=== PATIENT | female | born 1945 | race Caucasian/White ===

== ENCOUNTER → 2019-07-06 | Outpatient (CLI) | payer MEDICARE, BC ==
[~2019-07-06] MED LIST: LEXAPRO 10 MG T10 M1 PO; SYNTHROID125 MCG PO; VICODIN 5-5001 EACH PO
== END ==
LOC: M.ULTRA 13:53
DX: I82.412 Acute embolism and thrombosis of left femoral vein (principal); Z88.0 Allergy status to penicillin; Z88.8 Allergy status to other drugs, medicaments and biological substances

== ENCOUNTER 2019-11-07 01:24 | Emergency (ER) | payer MEDICARE, BC ==
[~2019-11-07] VITALS: Ht 170.2 cm; Wt 70.3 kg
[2019-11-07 01:44] LABS: URINE BILIRUBIN NEGATIVE (Negative); URINE BLOOD 1+ (Negative); URINE CLARITY CLEAR; URINE COLOR YELLOW; URINE GLUCOSE-RANDOM NEGATIVE (Negative); URINE KETONES NEGATIVE (Negative); URINE LEUKOCYTES-REFLEX 2+ (Negative); URINE NITRITE-REFLEX NEGATIVE (Negative); URINE PROTEIN NEGATIVE (Negative); URINE SPECIFIC GRAVITY <= 1.005 (1.005-1.030); URINE UROBILINOGEN 0.2 E.U./dl (0.2-1.0)
[2019-11-07 02:21] LABS: CASTS None Seen /LPF (None Seen); SQUAMOUS 0-3 Few /LPF (0-3); WBC CLUMPS Few (None Seen)
[2019-11-07 02:22] LABS: URINE RBC 3-10 Few /HPF (0-2); URINE WBC-REFLEX >25 Many /HPF (0-5)
[2019-11-07 02:23] LABS: CRYSTALS None Seen /LPF (None Seen)
[2019-11-07] MEDS ORDERED: MACROBID 100 M100 M1 PO (02:48)
[2019-11-07] MEDS ORDERED: PYRIDIUM200 MG PO (02:48)
[2019-11-07 03:05] VITALS: BP 121/69
== END 2019-11-07 03:05 | disposition home or self-care (01) ==
LOC: M.ERS 01:24
PROVIDERS: Emergency Medicine
DX: N39.0 Urinary tract infection, site not specified (principal); Z88.1 Allergy status to other antibiotic agents; Z88.8 Allergy status to other drugs, medicaments and biological substances

== ENCOUNTER 2020-04-18 01:57 | Emergency (ER) | payer MEDICARE, BC ==
[~2020-04-18] VITALS: Ht 170.2 cm; Wt 74.4 kg
[~2020-04-18 01:57] MED LIST changes: +MACROBID 100 M100 M1 PO; +PYRIDIUM200 MG PO
[2020-04-18] MEDS ORDERED: LEXAPRO 10 MG T10 M2 PO (02:31)
[2020-04-18] MEDS ORDERED: SYNTHROID88 MC1 PO (02:31)
[2020-04-18] MEDS ORDERED: BUTALB-APAP-CA1 EACH PO (02:32)
[2020-04-18 02:36] LABS: ABSOLUTE BASOPHILS 0.1 thou/uL (0.0-0.2); ABSOLUTE EOSINOPHILS 0.5 thou/uL (0.0-0.7); ABSOLUTE LYMPHOCYTES 3.1 thou/uL (0.8-5.3); ABSOLUTE MONOCYTES 0.8 thou/uL (0.0-1.2); ABSOLUTE NEUTROPHILS 2.4 thou/uL (1.6-8.1); BASOPHILS 0.9 %; EOSINOPHILS 7.5 %; HEMATOCRIT 39.5 % (37.0-47.0); HEMOGLOBIN 13.6 gm/dL (12.0-15.0); LYMPHOCYTES 45.1 %; MCH 32.3 pg (26.0-34.0); MCHC 34.4 g/dL (28.0-37.0); MCV 93.8 fL (80.0-100.0); MONOCYTES 11.2 %; NUCLEATED RBCS 0 /100WBC; PLATELET COUNT* 250 thou/uL (150-400); POLYS 35.3 %; RBC 4.21 mil/uL (4.20-5.00); RDW-CV 12.8 % (10.5-14.5); WBC 6.8 thou/uL (4.0-11.0)
[2020-04-18 02:41] LABS: CALCIUM 8.5 mg/dL (8.5-10.1); CREATININE 0.8 mg/dL (0.6-1.3); POTASSIUM 3.5 mmol/L (3.5-5.1)
[2020-04-18 02:51] LABS: URINE BILIRUBIN NEGATIVE (Negative); URINE BLOOD TRACE (Negative); URINE CLARITY CLEAR; URINE COLOR STRAW; URINE GLUCOSE-RANDOM NEGATIVE (Negative); URINE KETONES NEGATIVE (Negative); URINE LEUKOCYTES-REFLEX NEGATIVE (Negative); URINE NITRITE-REFLEX NEGATIVE (Negative); URINE PROTEIN NEGATIVE (Negative); URINE SPECIFIC GRAVITY <= 1.005 (1.005-1.030); URINE UROBILINOGEN 0.2 E.U./dl (0.2-1.0)
[2020-04-18 02:55] LABS: ALBUMIN 3.4 g/dL (3.4-5.0); MAGNESIUM 2.2 mg/dL (1.8-2.4); TOTAL BILIRUBIN 0.2 mg/dL (<0.1-1.0)
[2020-04-18 03:06] LABS: PROTIME 10.7 Seconds (9.20-11.50)
[2020-04-18] MEDS ORDERED: MACROBID 100 M100 M1 PO (04:17)
[2020-04-18 04:29] VITALS: BP 112/58
--- NOTE | 2020-04-18 13:27 | EKG ---
[place] [address] ELECTROCARDIOGRAM REPORT Name: ELVIAPAMELLA DUARTESEAN [place] Room: [facility]#: [id number] Admission: 04/18/20 Attend Phys: Discharge: 04/18/20 Date of : 45 Date of Service: 04/18/20 0207 Report #: [id number] THIS REPORT FOR: //name// [facility] ED Test Date: 2020-04-18 Test Time: 02:07:23 Pat Name: SEAN DUARTE Department: Room: Gender: F Corporate Manager: : 1945 Requested By: Jazmin Dejesus Order Number: [id number] Maria G MD: Boston Duenas Measurements Intervals [place] Rate: 116 P: FL: QRS: -4 QRSD: 86 T: 8 QT: 312 QTc: 434 Interpretive Statements Atrial fibrillation Abnormal R-wave progression, early transition Borderline repol abnormality, diffuse leads No previous ECG available for comparison Electronically Signed On 04-18-2020 13:27:07 CDT by Boston Duenas [email or web address] <ELECTRONICALLY SIGNED> By: Boston Duenas MD, [facility] 04/18/20 1327 6 Boston Duenas MD, [facility] /EPI
--- NOTE | 2020-04-18 13:28 | EKG ---
[place] [address] ELECTROCARDIOGRAM REPORT Name: ELVIA DRAKEEVESEAN Room: [facility]#: [id number] Admission: 04/18/20 Attend Phys: Discharge: 04/18/20 Date of : 45 Date of Service: 04/18/20316 Report #: [id number] THIS REPORT FOR: //name// 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
== END 2020-04-18 04:30 | disposition home or self-care (01) ==
LOC: M.ERS 01:57
PROVIDERS: Emergency Medicine
DX: I48.91 Unspecified atrial fibrillation (principal); Z88.1 Allergy status to other antibiotic agents; Z87.440 Personal history of urinary (tract) infections

== ENCOUNTER 2021-07-30 09:32 | Inpatient (IN) | payer MEDICARE, BC ==
[~2021-07-30] VITALS: Ht 170.2 cm; Wt 69.4 kg
--- NOTE | ~2021-07-30 | EKG ---
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
--- NOTE | ~2021-07-30 | EKG ---
[place] [address] ELECTROCARDIOGRAM REPORT Name: SEAN DEJESUS Room: [place] [address] ADM IN .R.#: [id number] Admission: 07/30/21 Attend Phys: Mary Desai, Discharge: Date of : 45 Date of Service: 07/30/21 1008 Report #: [id number] THIS REPORT FOR: //name// 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
[~2021-07-30 09:32] MED LIST changes: +BUTALB-APAP-CA1 EACH PO; +LEXAPRO 10 MG T10 M2 PO; +SYNTHROID88 MC1 PO
[2021-07-30 09:34] VITALS: BP 135/62
[2021-07-30] MEDS ORDERED: PRADAXA150 MG PO (09:37)
[2021-07-30] MEDS ORDERED: KAPSPARGO SPRIN25 MG (09:39)
[2021-07-30 10:06] LABS: ABSOLUTE EOSINOPHILS 0.3 thou/uL (0.0-0.7); ABSOLUTE LYMPHOCYTES 1.4 thou/uL (0.8-5.3); ABSOLUTE MONOCYTES 0.7 thou/uL (0.0-1.2); ABSOLUTE NEUTROPHILS 2.3 thou/uL (1.6-8.1); BASOPHILS 0.8 %; EOSINOPHILS 6.4 %; HEMOGLOBIN 13.6 gm/dL (12.0-15.0); LYMPHOCYTES 30.3 %; MCH 31.8 pg (26.0-34.0); MCHC 33.9 g/dL (28.0-37.0); MCV 93.6 fL (80.0-100.0); MONOCYTES 14.1 %; MPV 7.4 fl. (7.2-11.1); NUCLEATED RBCS 0 /100WBC; PLATELET COUNT* 234 thou/uL (150-400); POLYS 48.4 %; RBC 4.27 mil/uL (4.20-5.00); RDW-CV 12.8 % (10.5-14.5); WBC 4.7 thou/uL (4.0-11.0)
[2021-07-30 10:20] LABS: CALCIUM 9.2 mg/dL (8.5-10.1); CREATININE 0.8 mg/dL (0.6-1.3); POTASSIUM 3.6 mmol/L (3.5-5.1)
[2021-07-30 10:25] LABS: ALBUMIN 3.5 g/dL (3.4-5.0); MAGNESIUM 2.1 mg/dL (1.8-2.4); TOTAL BILIRUBIN 0.3 mg/dL (<0.1-1.0); TOTAL PROTEIN 7.6 g/dL (6.4-8.2)
[2021-07-30] MEDS ORDERED: MACROBID 100 M100 MG PO (13:18)
[2021-07-30] MEDS ORDERED: CLARITIN10 MG PO (14:17)
[2021-07-30] MEDS ORDERED: TOPROL XL25 MG PO (14:21)
--- NOTE | 2021-07-30 14:22 | CON ---
[address] [address] CONSULTATION Name: SEAN DEJESUS Room: [place] [address] ADM IN M.R.#: [id number] Admission: 07/30/21 Attend Phys: Mary Desai MD Discharge: Date of : 45 Report #: [id number] THIS REPORT FOR: cc: Shubham Mathews MD, Dean L. MD Blick, David R. MD FAC ~ cc: Shubham Mathews MD, SHEILA TURCIOS MD DATE OF CONSULTATION: 07/30/2021 CARDIOLOGY CONSULTATION HISTORY OF PRESENT ILLNESS: The patient is a 75-year-old white female who came to the Emergency Room complaining of palpitations. The patient notes that last year, she was having intermittent palpitations. She was evaluated by Dr. Sheila Turcios in the Cardiology Clinic at [facility]. She wore a monitor and apparently had an echocardiogram. She was told that she had intermittent atrial fibrillation. She was started on metoprolol and Pradaxa. Since that time, she has had only rare episodes where her heart skipped a few beats. She has had no prolonged palpitations or syncope. Apparently, she forgot to take her metoprolol yesterday. She awakened at 3:00 in the morning with her heart beating fast. It would occur off and on. She finally called the EMS and was brought to the Emergency Room here at [facility] this morning. On the monitor, she was in sinus rhythm. However, when the patient got up to walk to the bathroom, she went into a rapid narrow complex tachycardia at 150 beats per minute consistent with atrial flutter. This then converted when she laid down. Cardiology consultation requested. She stays very active. Denies any chest tightness, shortness of breath, recent fever or cough. She has been vaccinated twice for COVID-19 and apparently recently had her booster shot. PAST MEDICAL HISTORY: She has had a hysterectomy. She has no history of hypertension, diabetes or hyperlipidemia. MEDICATIONS: Her only medications are metoprolol 25 mg a day, Pradaxa 150 mg twice a day. She takes Lexapro, Synthroid. ALLERGIES: SHE HAS AN ALLERGY TO CIPRO. FAMILY HISTORY: Her father had heart attack. SOCIAL HISTORY: She is . She and her live in [place]. No smoking. Rarely drinks alcohol. One cup of coffee a day. REVIEW OF SYSTEMS: No history of stroke, asthma, kidney disease or cancer. She saw a psychologist years ago after she went through a divorce[place] [address] CONSULTATION Name: ELVIA DUARTESEAN E Room: [address] IN ..#: [id number] Admission: 07/30/21 Attend Phys: Mary Desai MD Discharge: Date of : 45 Report #: [id number] condition. PHYSICAL EXAMINATION: GENERAL: Revealed an elderly female who appeared in no acute distress. VITAL SIGNS: She had a blood pressure of 140/90, pulse was 80. She was afebrile. HEENT: She was anicteric. Conjunctivae pink. Mucosa was moist. NECK: Veins not distended. No carotid bruits. Neck is supple. CHEST: Clear to auscultation. CARDIAC: Regular rate and rhythm without murmur. ABDOMEN: Soft. EXTREMITIES: Had no edema. Posterior tibial pulse 2+ bilaterally. SKIN: Cool and dry. NEUROLOGIC: Nonfocal. IMAGING DATA: ECG on admission showed a sinus rhythm, nonspecific ST segment change. There was no QT prolongation. On the monitor; however, she was having episodes of narrow complex tachycardia at 150 beats per minute consistent with atrial flutter. Additional workup in the Emergency Room today, she had a portable chest x-ray that showed normal heart size, clear lung garces. LABORATORY DATA: Creatinine 0.8. Liver function studies were normal. High sensitivity troponin was 18. Her white blood cell count 4.7, hemoglobin 13.6. Her COVID antigen stat test was negative. IMPRESSION AND RECOMMENDATIONS: Atrial flutter. History of atrial fibrillation. I would recommend switching from metoprolol to sotalol. I would continue anticoagulation with Pradaxa. <ELECTRONICALLY SIGNED> By: Boston Duenas MD, [facility] 07/30/21 1422 1158 1224Darina Duenas MD, FACC /nt
[2021-07-30 18:49] VITALS: BP 101/82
[2021-07-30 20:00] VITALS: BP 110/47
[2021-07-31] VITALS (9 sets, daily range): BP systolic 94–142; BP diastolic 46–69
[2021-07-31] MEDS ORDERED: SORINE 80 MG TA80 M1 PO (12:49)
--- NOTE | 2021-07-31 13:07 | EKG ---
[place] [address] ELECTROCARDIOGRAM REPORT Name: SEAN DEJESUS Room: [place] [address] ADM [place] 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: ROSALIO : 1945 Requested By: Dixon Day Order Number: [id number] MD: Boston Duenas Measurements Intervals [place] Rate: 88 P: 49 DE: 150 QRS: -5 QRSD: 87 T: -32 QT: 370 QTc: 448 Interpretive Statements Sinus rhythm Abnormal R-wave progression, early transition Borderline repol abnrm, inferolateral leads Compared to ECG 07/30/2021 10:08:16 Atrial premature complex(es) no longer present Electronically Signed On 07-31-2021 13:07:19 CDT by Boston Duenas [email or web address] <ELECTRONICALLY SIGNED> By: Boston Duenas MD, FACC 07/31/21 1307 1136 1136 Boston Duenas MD, FACC /EPI
--- NOTE | 2021-07-31 15:01 | EKG ---
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: MALVIN : 1945 Requested By: Boston Duenas Order Number: [id number] Maria G MD: Boston Duenas Measurements Intervals [place] Rate: 57 P: 30 DE: 145 QRS: -1 QRSD: 92 T: -10 QT: 441 QTc: 430 Interpretive Statements Sinus bradycardia Abnormal R-wave progression, early transition Borderline T abnormalities, inferior leads Compared to ECG 07/30/2021 11:36:28 rate has slowed Electronically Signed On 07-31-2021 15:01:26 CDT by Boston Duenas [email or web address] <ELECTRONICALLY SIGNED> By: Boston Duenas MD, FACC 07/31/21 1501 0850 0850 Boston Duenas MD, FACC /EPI
--- NOTE | 2021-07-31 16:07 | 2DMMODE ---
[place] [address] 2 D/M-MODE ECHOCARDIOGRAM Name: SEAN DEJESUS Room: [place] [address] ADM IN [facility]#: [id number] Admission: 07/30/21 Attend Phys: Mary Desai, Discharge: Date of : 45 Date of Service: 07/31/21 1607 Report #: [id number] THIS REPORT FOR: cc: Shubham Mathews MD, Dean L. MD [place], Michael J. MD [facility] ~ APPROVED REPORT Study performed: 07/31/2021 14:40:53 EXAM: Comprehensive 2D, Doppler, and color-flow Echocardiogram Patient Location: In-Patient Room #: er Status: routine BSA: 1.80 HR: 62 bpm BP: 117/58 mmHg Rhythm: NSR Other Information Study Quality: Good Indications Atrial Fibrillation 2D Dimensions IVSd: 9.63 (7-11mm) LVOT Diam: 19.68 (18-24mm) LVDd: 43.98 mm PWd: 8.87 (7-11mm) Ascending Ao: 30.73 (22-36mm) LVDs: 28.04 (25-40mm) Volumes Left Atrial Volume (Systole) LA ESV Index: 22.90 mL/m2 Aortic Valve AoV Peak Albino.: 1.38 m/s AO Peak Gr.: 7.56 mmHg LVOT Max P.62 mmHg AO Mean Gr.: 4.02 mmHg LVOT Mean P.69 mmHg LVOT Max V: 1.19 m/s AO V2 VTI: 28.88 cm LVOT Mean V: 0.75 m/s CLIFF (VTI): 2.76 cm2 LVOT V1 VTI: 26.21 [place] [address] 2 D/M-MODE ECHOCARDIOGRAM Name: SEAN DEJESUS Room: [address] IN ..#: [id number] Admission: 07/30/21 Attend Phys: Mary Desai, Discharge: Date of : 45 Date of Service: 07/31/21 1607 Report #: [id number]/A Ratio: 1.03 MV Decel. Time: 196.83 ms MV E Max Albino.: 0.73 m/s MV PHT: 57.08 ms MVA (PHT): 3.85 cm2 TDI E/Lateral E': 6.64 E/Medial E': 5.62 Medial E' Albino.: 0.13 m/s Lateral E' Albino.: 0.11 m/s Pulmonary Valve PV Peak Albino.: 0.78 m/s PV Peak Gr.: 2.45 mmHg Tricuspid Valve RAP Estimate: 5.00 mmHg TR Peak Gr.: 20.97 mmHg RVSP: 25.00 mmHg PA Pressure: 25.00 mmHg Left Ventricle The left ventricle is normal size. There is normal LV segmental wall motion. There is normal left ventricular wall thickness. Left ventricular systolic function is normal. LVEF is 55-60%. Transmitral Doppler flow pattern suggests impaired LV relaxation. Right Ventricle The right ventricle is normal size. The right ventricular systolic function is normal. Atria The left atrium size is normal. The right atrium size is normal. Aortic Valve The aortic valve is normal in structure. No aortic regurgitation is present. There is no aortic valvular stenosis. Mitral Valve The mitral valve is normal in structure. Trace mitral regurgitation. No evidence of mitral valve stenosis. Tricuspid Valve The tricuspid valve is normal in structure. Trace tricuspid regurgitation. No pulmonary hypertension[place] [address] 2 D/M-MODE ECHOCARDIOGRAM Name: SEAN DEJESUS Room: [address] IN [facility]#: [id number] Admission: 07/30/21 Attend Phys: Mary Desai, Discharge: Date of : 45 Date of Service: 07/31/21 1607 Report #: [id number] The pulmonary valve is normal in structure. There is no pulmonic valvular regurgitation. Great Vessels The aortic root is normal in size. IVC is normal in size and collapses >50% with inspiration. Pericardium There is no pericardial effusion. <Conclusion> The left ventricle is normal size. There is normal left ventricular wall thickness. Left ventricular systolic function is normal. LVEF is 55-60%. Transmitral Doppler flow pattern suggests impaired LV relaxation. There is normal LV segmental wall motion. Trace mitral regurgitation. Trace tricuspid regurgitation. No pulmonary hypertension. IVC is normal in size and collapses >50% with inspiration. <ELECTRONICALLY SIGNED> By: Sukumar Mays MD, FACC 07/31/21 160 160 160 Sukumar Mays MD, FACC /INF
[2021-08-01] VITALS: BP 107/52
[2021-08-01 04:00] VITALS: BP 109/56
[2021-08-01 04:45] LABS: HEMATOCRIT 39.7 % (37.0-47.0); HEMOGLOBIN 13.5 gm/dL (12.0-15.0); MCH 31.7 pg (26.0-34.0); MCHC 33.9 g/dL (28.0-37.0); MCV 93.5 fL (80.0-100.0); MPV 7.7 fl. (7.2-11.1); RBC 4.25 mil/uL (4.20-5.00); RDW-CV 12.9 % (10.5-14.5)
[2021-08-01 05:15] LABS: ALBUMIN 3.3 g/dL (3.4-5.0); CALCIUM 8.9 mg/dL (8.5-10.1); CREATININE 0.7 mg/dL (0.6-1.3); MAGNESIUM 2.3 mg/dL (1.8-2.4); TOTAL BILIRUBIN 0.3 mg/dL (<0.1-1.0); TOTAL PROTEIN 7.1 g/dL (6.4-8.2)
[2021-08-01 08:00] VITALS: BP 108/51
--- NOTE | 2021-08-01 10:01 | EKG ---
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: YANE : 1945 Requested By: Boston Duenas Order Number: [id number] Reading MD: Boston Duenas Measurements Intervals [place] Rate: 61 P: 22 [place]: 150 QRS: -13 QRSD: 89 T: -14 QT: 421 QTc: 424 Interpretive Statements Sinus rhythm Abnormal R-wave progression, early transition Borderline T abnormalities, inferior leads Compared to ECG 07/31/2021 08:50:27 Sinus bradycardia no longer present T-wave abnormality still present Electronically Signed On 08-01-2021 10:00:53 CDT by Boston Duenas [email or web address] <ELECTRONICALLY SIGNED> By: Boston Duenas MD, FACC 08/01/21 1000 Boston Duenas MD, FACC /EPI
[2021-08-01 10:14] VITALS: BP 108/51
== END 2021-08-01 10:30 | disposition home or self-care (01) | DRG 309 ==
LOC: M.ERS 09:32 → M.TBA-ER 13:11 → M.2W 07-31 20:27
PROVIDERS: Emergency Medicine Emergency Medical Services; ADMIT Internal Medicine; ATTEND Internal Medicine
DX: I48.92 Unspecified atrial flutter (principal); D68.69 Other thrombophilia; I48.91 Unspecified atrial fibrillation; Z20.822 Contact with and (suspected) exposure to COVID-19; F41.9 Anxiety disorder, unspecified; E03.9 Hypothyroidism, unspecified; E78.5 Hyperlipidemia, unspecified; E11.9 Type 2 diabetes mellitus without complications; Z82.49 Family history of ischemic heart disease and other diseases of the circulatory system; Z90.710 Acquired absence of both cervix and uterus; Z88.1 Allergy status to other antibiotic agents; Z88.8 Allergy status to other drugs, medicaments and biological substances; Z79.899 Other long term (current) drug therapy